=== PATIENT | female | born 1985 | race Caucasian/White ===

== ENCOUNTER 2018-12-15 07:45 | Emergency (ER) | payer OTHER ==
--- NOTE | 2018-12-15 08:39 | C.PDOC ---
History Of Present Illness 33 years old female presents to ED for complaints of left ankle pain. Patient reports she missed a step while walking down the stairs and she fell and twisted her left ankle. Patient is also complaining of left lateral malleolus swelling. denies numbness and tingling. Time Seen by Provider: 12/15/18 08:00 Chief Complaint (Nursing): Lower Extremity Problem/Injury History Per: Patient History/Exam Limitations: no limitations Onset/Duration Of Symptoms: Hrs Current Symptoms Are (Timing): Still Present Recent travel outside of the [place]: No - Ankle/Foot Description Of Injury: Fell, Twisted Past Medical History Reviewed: Historical Data, Nursing Documentation, Vital Signs Vital Signs: Last Vital Signs Temp 97.8 F 12/15/18 07:49 Pulse 57 L 12/15/18 07:49 Resp 16 12/15/18 07:49 BP 120/77 12/15/18 07:49 Pulse Ox 100 12/15/18 07:49 - Medical History PMH: No Chronic Diseases Surgical History: No Surg Hx Family History: States: No Known Family Hx - Social History Hx Alcohol Use: No Hx Substance Use: No - Immunization History Hx Tetanus Toxoid Vaccination: Yes Hx Influenza Vaccination: Yes Hx Pneumococcal Vaccination: No Review Of Systems Constitutional: Negative for: Fever, Chills Musculoskeletal: Positive for: Other (Left ankle pain and lateral malleolus swelling) Skin: Negative for: Rash Neurological: Negative for: Weakness, Numbness Physical Exam - Physical Exam Appears: Non-toxic, No Acute Distress Skin: Warm, Dry, No Rash Head: Atraumatic, Normacephalic Oral Mucosa: Moist Extremity: Normal ROM (Full and active of left knee and ankle ), Tenderness (Mild to left lateral malleolus. No tenderness to proximal fibula. ), Capillary Refill (less than 2 seconds), Swelling (Mild to left lateral malleolus ) Extremity: Bilateral: Normal ROM Pulses: Left Dorsalis Pedis: Normal, Right Dorsalis Pedis: Normal Neurological/Psych: Oriented x3, Normal Speech, Normal Cognition, Normal Motor, Normal Sensation ED Course And Treatment O2 Sat by Pulse Oximetry: 100 (RA) Pulse Ox Interpretation: Normal - Other Rad Ankle XR X-Ray: Read By Radiologist Interpretation: IMPRESSION: No evidence of acute fracture or dislocation. Medical Decision Making Medical Decision Making: Plan: * Tylenol * Left Ankle X-Ray 910 no fx noted on xray., air cast applied with ortho shoe. wb as tolerated. f/u podiatry Disposition Counseled Patient/Family Regarding: Studies Performed, Diagnosis, Need For Followup - Disposition Referrals: [facility] [Outside] Podiatry Clinic [Outside] Zeinab Whyte DPM [Staff Provider] - Disposition: HOME/ ROUTINE Disposition Time: 09:12 Condition: GOOD Additional Instructions: Wear aircast during daytime for support. Ambulate as tolerated. Tylenol or Motrin for pain. Cold compresses several times a day to ankle. Elevate foot whem possible. Follow u with signal fitter. 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 - Scribe Statement The provider has reviewed the documentation as recorded by the Scriblondon Santoro All medical record entries made by the Wildibl[place] were at my direction and personally dictated by me. I have reviewed the chart and agree that the record accurately reflects my personal performance of the history, physical exam, medical decision making, and the department course for this patient. I have also personally directed, reviewed, and agree with the discharge instructions and disposition.
[2018-12-15 09:24] VITALS: BP 108/69; PULSE 61; RESP 17; TEMP 98.5
--- NOTE | 2018-12-15 10:49 | RAD ---
Date of service: 12/15/2018 PROCEDURE: Left Ankle Radiographs. HISTORY: Lateral malleolus swell COMPARISON: None available. FINDINGS: BONES: Normal. No fracture. JOINTS: Normal. No osteoarthritis. Ankle mortise maintained. Talar dome intact SOFT TISSUES: Normal. OTHER FINDINGS: None. IMPRESSION: No evidence of acute fracture or dislocation.
[2018-12-15 10:51] VITALS: O2SAT 100
== END 2018-12-15 09:23 | disposition home or self-care (01) ==
LOC: C.ER 07:45
DX: S93.402A Sprain of unspecified ligament of left ankle, initial encounter (principal); W10.9XXA Fall (on) (from) unspecified stairs and steps, initial encounter